=== PATIENT | female | born 1945 | race Caucasian/White ===

== ENCOUNTER 2016-12-20 14:14 | Observation (INO) | payer OTHER, MEDICARE ==
[~2016-12-20] VITALS: Ht 160 cm; Wt 42.5 kg
[~2016-12-20 14:14] MED LIST: AMITIZA8 MICROGRA PO; ANTIHISTAMINE; FLUVASTATIN SOD40 MG PO; LESCOL40 MG PO; LEVOTHYROXINE50 MCG PO; LEVOTHYROXINE75 MCG PO; LISINOPRIL40 MG PO; Levaquin PO; Levothroid,Synthroid PO; PREMPRO PO; PRILOSEC OTC; PRILOSEC20 MG PO; PRILOSEC40 MG PO; PRIMPRO; PriLOSEC PO; Reglan PO; Sudafed PO; ZESTRIL,PRINIVI40 MG PO; Zestril,Prinivil PO; [UNRECOGNIZED DRUG - OTHER]
[2016-12-20 14:56] LABS: BASOPHIL COUNT 0.1 K/uL (0-0.1); EOSINOPHIL (%) 0.8 % (0-5); EOSINOPHIL COUNT 0.1 K/uL (0-0.3); HEMATOCRIT 41.3 % (36.0-46.0); IMMATURE GRANULOCYTE (%) 0.3 % (0.0-0.7); INSTRUMENT ABS NEUTROPHIL CT 4.4 K/uL; LYMPHOCYTE COUNT 1.3 K/uL (1.0-2.8); MCH 28.8 PG (29.0-34.0); MCHC 33.4 G/DL (30.0-36.0); MCV 86.2 FL (83-99); MEAN PLAT.VOLUME 11.4 uM^3 (9.5-12.4); MONOCYTE (%) 6.5 % (3-12); MONOCYTE COUNT 0.4 K/uL (0-0.8); NEUTROPHIL (%) 70.7 % (45-76); NEUTROPHIL COUNT 4.4 K/uL (1.8-6.4); PLATELET COUNT 216 K/uL (156-360); RBC DIS.WIDTH-CV 12.4 % (11.8-14.6); RBC DIS.WIDTH-SD 39.5 % (39-53); RED BLOOD COUNT 4.79 M/uL (3.80-5.20); WHITE BLOOD COUNT 6.3 K/uL (4.1-10.2)
[2016-12-20 15:05] LABS: CHLORIDE 99 mEq/L (99-109); SODIUM 134 mEq/L (136-147)
[2016-12-20 15:07] LABS: GLUCOSE 94 mg/dL (70-99)
[2016-12-20 15:08] LABS: ANION GAP 7 MEQ/L (2-14)
[2016-12-20 15:09] LABS: TOTAL BILIRUBIN 0.4 mg/dL (0.0-1.0)
[2016-12-20 15:10] LABS: ALKALINE PHOSPHATASE 123 IU/L (3-129)
[2016-12-20 15:11] LABS: GFR ESTIMATE (CALCULATED) > 59 mL/min/
[2016-12-20 15:12] LABS: UREA NITROGEN (BUN) 10 mg/dL (9-23)
[2016-12-20 15:39] LABS: D-DIMER ELISA 0.38 mg/L FEU (< 0.57)
[2016-12-20 15:42] LABS: TROP-I INTERPRETATION NEGATIVE; TROPONIN-I < 0.01 ng/mL (0.0-0.30)
[2016-12-20 15:49] LABS: ADD MIUA? YES; BILIRUBIN NEGATIVE; BLOOD MODERATE; COLOR YELLOW ((YELLOW)); GLUCOSE (STRIP) NEGATIVE; KETONES NEGATIVE; LEUKOCYTES LARGE; NITRITE POSITIVE; PROTEIN (STRIP) NEGATIVE; SPECIFIC GRAVITY 1.005 (1.000-1.030); UROBILINOGEN 0.2 MG/DL (0.2-1.0)
[2016-12-20 15:57] LABS: BACTERIA RARE /HPF; EPITHELIAL CELLS RARE /HPF; MUCUS NONE SEEN /LPF; RED BLOOD CELLS 0-5 /HPF (0-5); UCUL ADDED? NO; WHITE BLOOD CELLS 20-30 /HPF (0-5)
[2016-12-20] MEDS ORDERED: LO-DOSE ASPIRIN81 M2 PO (16:29)
[2016-12-20] MEDS ORDERED: PRILOSEC OTC20 MG PO (16:29)
[2016-12-20 18:48] LABS: TROP-I INTERPRETATION NEGATIVE; TROPONIN-I < 0.01 ng/mL (0.0-0.30)
[2016-12-20 19:46] VITALS: BP 167/83
[2016-12-20 23:55] VITALS: BP 190/75
[2016-12-21] VITALS (8 sets, daily range): BP systolic 129–196; BP diastolic 58–101
[2016-12-21 01:21] LABS: TROP-I INTERPRETATION NEGATIVE; TROPONIN-I < 0.01 ng/mL (0.0-0.30)
[2016-12-21] MEDS ORDERED: CEFTIN500 MG PO (08:55)
== END 2016-12-21 13:08 | disposition home or self-care (01) ==
LOC: EME 14:14 → EDOF 17:22 → 5WEST 17:22
PROVIDERS: Emergency Medicine; Hospitalist
DX: N39.0 Urinary tract infection, site not specified (principal); R07.9 Chest pain, unspecified; I16.0 Hypertensive urgency; I10 Essential (primary) hypertension; R53.1 Weakness; R20.8 Other disturbances of skin sensation; K21.9 Gastro-esophageal reflux disease without esophagitis; G37.3 Acute transverse myelitis in demyelinating disease of central nervous system; E03.9 Hypothyroidism, unspecified; F17.210 Nicotine dependence, cigarettes, uncomplicated; Z74.01 Bed confinement status; Z99.3 Dependence on wheelchair
CPT/HCPCS: 71020; 80053; 81003; 84484; 85025; 85379; 87077; 87086; 87186; 93005; 99281; 99285; G0378; J0360; J0696; J7030; J7050

== ENCOUNTER 2017-10-09 14:16 | Emergency (ER) | payer OTHER, MEDICARE ==
[~2017-10-09] VITALS: Ht 160 cm; Wt 44.5 kg
[~2017-10-09 14:16] MED LIST changes: +CEFTIN500 MG PO; +LO-DOSE ASPIRIN81 M2 PO; +PRILOSEC OTC20 MG PO
[2017-10-09] MEDS ORDERED: NORCO 5/3251 TABLET PO (15:55)
[2017-10-09 17:47] VITALS: BP 120/66
== END 2017-10-09 15:56 | disposition home or self-care (01) ==
LOC: EME 14:16
DX: S42.031A Displaced fracture of lateral end of right clavicle, initial encounter for closed fracture (principal); S50.01XA Contusion of right elbow, initial encounter; R07.89 Other chest pain; M79.601 Pain in right arm; V59.50XA Passenger in pick-up truck or van injured in collision with unspecified motor vehicles in traffic accident, initial encounter; Y92.410 Unspecified street and highway as the place of occurrence of the external cause; Z99.3 Dependence on wheelchair; I10 Essential (primary) hypertension; K21.9 Gastro-esophageal reflux disease without esophagitis; E03.9 Hypothyroidism, unspecified; Z88.2 Allergy status to sulfonamides; F17.200 Nicotine dependence, unspecified, uncomplicated
CPT/HCPCS: 73030; 73060; 99281; 99285